=== PATIENT | male | born 1985 | race Caucasian/White ===

== ENCOUNTER 2021-07-10 14:55 | Outpatient (REF) | payer MEDICARE, MEDICAID, SELFPAY ==
[2021-07-10 15:40] LABS: Basophils Percent Auto 0.6 % (0-2); Eosinophils Absolute Auto 0.2 X10*3/uL (0.0-0.4); Eosinophils Percent Auto 2.3 % (0-4); Hemoglobin 14.6 g/dl (14.0-18.0); Imm Gran Abs Auto 0.03 X10*3/uL (0.00-0.03); Imm Gran Pct Auto 0.5 % (0.0-0.4); Lymphocytes Absolute Auto 1.9 X10*3/uL (1.2-4.9); Lymphocytes Percent Auto 28.9 % (20-40); Mean Corpuscular Hemoglobin 30.4 pg (27.0-33.0); Mean Corpuscular Volume 89.6 fL (80.0-98.0); Mean Platelet Volume 10.7 fL (9.4-12.4); Monocytes Absolute Auto 0.6 X10*3/uL (0.1-1.2); Monocytes Percent Auto 8.7 % (2-11); Platelet Count 198 X10*3/uL (160-400); White Blood Count 6.4 X10*3/uL (4.8-10.8)
[2021-07-10 15:41] LABS: MANUAL DIFF FLAG NO; Prothrombin Time 11.7 SEC (9.9-13.0)
[2021-07-10 15:44] LABS: Partial Thromboplastin Time 36.5 SEC (24.1-38.0)
[2021-07-10 16:08] LABS: Alanine Aminotransferase 31 U/L (0-40); Albumin Level 4.4 g/dL (3.5-5.0); Alkaline Phosphatase 79 U/L (39-117); Anion Gap 10 (12-20); Aspartate Amino Transferase 25 U/L (5-37); Bilirubin Total 0.3 mg/dL (0.0-1.0); Blood Urea Nitrogen 11 mg/dL (9-16); Calcium 9.3 mg/dL (8.4-10.2); Carbon Dioxide 31 mmol/L (22-29); Chloride 102 mmol/L (96-108); Estimated Glomerular Filt Rate > 60; Glucose Random 94 mg/dL (60-115); Potassium 4.4 mmol/L (3.3-5.1); Sodium 139 mmol/L (135-145); Total Protein 7.2 g/dL (6.5-8.0)
[2021-07-10 16:29] LABS: TSH reflex Free T4 1.24 uIU/mL (0.32-4.0); Vitamin D 25-OH Total 15.4 ng/mL (>30)
== END 2021-07-10 14:56 | disposition home or self-care (01) ==
LOC: HO.LAB 14:55
PROVIDERS: PCP Internal Medicine; Visit Provider Internal Medicine
DX: Z00.00 Encounter for general adult medical examination without abnormal findings (principal); E78.2 Mixed hyperlipidemia; I10 Essential (primary) hypertension; K05.30 Chronic periodontitis, unspecified; K01.1 Impacted teeth; E55.9 Vitamin D deficiency, unspecified; M85.80 Other specified disorders of bone density and structure, unspecified site
CPT/HCPCS: 36415; 80053; 82306; 84443; 85025; 85610; 85730

== ENCOUNTER 2021-07-12 10:27 | Outpatient (REF) | payer MEDICARE, MEDICAID, SELFPAY ==
[2021-07-12 11:41] LABS: Appearance Urine CLEAR; Color Urine YELLOW; Glucose Urine UA NEG (NEG); Leukocyte Esterase Urine NEG (NEG); Nitrite Urine NEG (NEG); PH 6.5 (5.0-8.0); Urine Blood NEG (NEG); Urine Ketones NEG (NEG); Urine Protein NEG (NEG-TRACE)
== END 2021-07-12 10:28 | disposition home or self-care (01) ==
LOC: HO.HMGCLNP 10:27
PROVIDERS: Visit Provider Internal Medicine
DX: R35.0 Frequency of micturition (principal)
CPT/HCPCS: 81003

== ENCOUNTER 2021-12-04 15:05 | Outpatient (REF) | payer MEDICARE, MEDICAID, SELFPAY ==
[2021-12-04 16:51] LABS: Eosinophils Absolute Auto 0.1 X10*3/uL (0.0-0.4); Eosinophils Percent Auto 1.2 % (0-4); Hemoglobin 14.7 g/dl (14.0-18.0); Imm Gran Abs Auto 0.04 X10*3/uL (0.00-0.03); Imm Gran Pct Auto 0.5 % (0.0-0.4); MANUAL DIFF FLAG SCAN; Monocytes Percent Auto 7.9 % (2-11); PLT CLUMP 1; SCAN SMEAR FLAG 1
[2021-12-04 16:54] LABS: Basophils Percent Auto 0.4 % (0-2); Hematocrit 44.1 % (42.0-52.0); Lymphocytes Absolute Auto 1.4 X10*3/uL (1.2-4.9); Lymphocytes Percent Auto 17.8 % (20-40); Mean Corpuscular HGB Conc 33.3 g/dl (31.0-36.0); Mean Corpuscular Hemoglobin 30.1 pg (27.0-33.0); Mean Corpuscular Volume 90.4 fL (80.0-98.0); Monocytes Absolute Auto 0.6 X10*3/uL (0.1-1.2); Neutrophils Absolute Auto 5.6 x10*3/uL (2.0-8.3); Neutrophils Percent Auto 72.2 % (45-73); Red Blood Count 4.88 X10*6/uL (4.60-5.80); Red Cell Distribution Width 12.9 % (11.0-16.0)
[2021-12-04 17:27] LABS: SLIDE REVIEW VERIFIED; White Blood Count 7.7 X10*3/uL (4.8-10.8)
[2021-12-04 17:28] LABS: Alanine Aminotransferase 44 U/L (0-40); Albumin Level 4.4 g/dL (3.5-5.0); Alkaline Phosphatase 89 U/L (39-117); Anion Gap 14 (12-20); Aspartate Amino Transferase 24 U/L (5-37); Bilirubin Total 0.2 mg/dL (0.0-1.0); Blood Urea Nitrogen 13 mg/dL (9-16); Calcium 9.5 mg/dL (8.4-10.2); Carbon Dioxide 27 mmol/L (22-29); Chloride 102 mmol/L (96-108); Estimated Glomerular Filt Rate > 60; Glucose Random 99 mg/dL (60-115); Potassium 4.2 mmol/L (3.3-5.1); Sodium 139 mmol/L (135-145); Total Protein 7.4 g/dL (6.5-8.0)
[2021-12-09 17:11] LABS: Levetiracetam Keppra 8.8 mcg/mL (12.0-46.0)
== END 2021-12-04 15:06 | disposition home or self-care (01) ==
LOC: HO.HMGCLDS 15:05
PROVIDERS: PCP Internal Medicine; Visit Provider Internal Medicine
DX: Z01.818 Encounter for other preprocedural examination (principal); G40.909 Epilepsy, unspecified, not intractable, without status epilepticus; Z79.899 Other long term (current) drug therapy
CPT/HCPCS: 36415; 80053; 80177; 85025

== ENCOUNTER 2022-01-07 10:11 | Emergency (ER) | payer MEDICARE, MEDICAID, SELFPAY ==
--- NOTE | ~2022-01-07 | CT_ITS ---
EXAMINATION: CT HEAD WITHOUT CONTRAST CLINICAL INFORMATION: Fall COMPARISON: Previous brain MRI May 2009 TECHNIQUE: Contiguous axial imaging was performed from the skull base to vertex without intravenous administration of contrast. This CT examination was performed using dose optimization techniques as appropriate, variously including the following: *Automated exposure control *Adjustment of mA and/or kV according to patient size (this includes techniques or standardized protocols for targeted exams where dose is matched to indication/reason for exam; i.e. extremities or head) *Use of iterative reconstruction technique DLP: 905 mGy-cm FINDINGS: There is no evidence of an extra-axial collection. There is no evidence of intra-axial or extra-axial hemorrhage. There is evidence of old trauma to the left frontal bone and left superior orbital rim and left frontal sinus. There is encephalomalacia and gliosis of the left frontal lobe and medial left posterior parietal lobe similar to previous MRI. The ventricles and extra-axial CSF spaces are prominent, particularly the posterior horn of the left lateral ventricle. This is similar to previous MRI as well. There is nonspecific periventricular white matter disease that appears unchanged. No mass or mass effect is seen. No acute skull fracture is seen. There is a plate in the left frontal bone/frontal sinus and the superior left orbital rim. There is a small polyp or cyst in the sphenoid sinus. CT/CT head/brain wo con IMPRESSION: No acute findings. Old trauma to the left frontal bone, frontal sinus and superior left orbital rim, encephalomalacia and gliosis of the left frontal lobe and left parietal lobe and prominence of the ventricles and extra-axial CSF spaces, particularly in the posterior horn of the left lateral ventricle, compared to May 2009 MRI.
--- NOTE | ~2022-01-07 | CT_ITS ---
EXAMINATION: CT CERVICAL SPINE WITHOUT CONTRAST CLINICAL INFORMATION: Fall COMPARISON: None TECHNIQUE: Axial images through the cervical spine without contrast. Sagittal and coronal reconstructions on the technologist workstation were performed. This CT examination was performed using dose optimization techniques as appropriate, variously including the following: *Automated exposure control *Adjustment of mA and/or kV according to patient size (this includes techniques or standardized protocols for targeted exams where dose is matched to indication/reason for exam; i.e. extremities or head) *Use of iterative reconstruction technique DLP: 535 mGy-cm FINDINGS: There is curvature of the lower cervical and proximal thoracic spine to the right. Bone alignment is otherwise normal. No fracture or dislocation is seen. There is mild degenerative spondylosis at C4-C5, C5-C6 and C6-C7. Disc spaces are normal. Prevertebral soft tissues are normal. The visualized lung apices are clear. There may be an old left clavicle fracture. CT/CT cervical spine wo con IMPRESSION: Curvature of the lower cervical and upper thoracic spine to the left. Mild degenerative changes. No fracture or dislocation. Question old left clavicle fracture. Fleischner guidelines were followed.
--- NOTE | ~2022-01-07 | XR_ITS ---
EXAMINATION: XR thoracic spine 3V, XR lumbar spine 2-3V CLINICAL INFORMATION: Reason for Exam fall, pain COMPARISON: None. TECHNIQUE: AP, lateral and swimmer's views of the thoracic spine AP, lateral and coned-down views lumbosacral spine FINDINGS: No acute fracture or traumatic malalignment. Vertebral body heights maintained. Minimal S-shaped thoracolumbar scoliosis, apex left at T9, apex right at L3. Small endplate osteophytes present throughout the thoracic and lumbar spine. Bulky hypertrophic facet arthropathy present throughout the lumbar spine. Paraspinal soft tissues unremarkable. XR/XR lumbar spine 2-3V IMPRESSION: No acute fracture or traumatic malalignment. Thoracolumbar spondylosis as described.
--- NOTE | ~2022-01-07 | XR_ITS ---
EXAMINATION: XR thoracic spine 3V, XR lumbar spine 2-3V CLINICAL INFORMATION: Reason for Exam fall, pain COMPARISON: None. TECHNIQUE: AP, lateral and swimmer's views of the thoracic spine AP, lateral and coned-down views lumbosacral spine FINDINGS: No acute fracture or traumatic malalignment. Vertebral body heights maintained. Minimal S-shaped thoracolumbar scoliosis, apex left at T9, apex right at L3. Small endplate osteophytes present throughout the thoracic and lumbar spine. Bulky hypertrophic facet arthropathy present throughout the lumbar spine. Paraspinal soft tissues unremarkable. XR/XR thoracic spine 3V IMPRESSION: No acute fracture or traumatic malalignment. Thoracolumbar spondylosis as described.
[2022-01-07 10:22] VITALS: BP 119/71; BP 130/90; PULSE 71; PULSE 91; RESP 20; TEMP 37.2; O2SAT 96; O2SAT 98; BMI 31.5
--- NOTE | 2022-01-07 11:13 | ED_ITS ---
HPI - Fall General Chief Complaint: Fall Stated Complaint: FALL OUT OF W/C VAN, BACK PAIN Time Seen by Provider: 01/07/22 10:41 Source: family and EMS Mode of arrival: ambulatory Limitations: altered mental status History of Present Illness HPI Narrative: Patient presents to the emergency department via EMS. Reportedly patient was being transported via wheelchair van to his adult daycare. Upon getting out of the wheelchair van his chair tipped backwards reportedly landing with the back of the chair and the headrest against the ground. Patient initially had reported some back pain. There was no loss of consciousness reported. On my exam the patient has no complaints, however his mother is at bedside and states that he has no reliable short-term memory. He is alert, verbal with mumbled speech but this is reportedly baseline per the mother. Related Data Previous Rx's Medication Instructions Recorded bisacodyl 10 mg rectal suppository 10 mg TX .COMPLEX PRN 90 Days #50 11/05/20 ea ketoconazole 2 % shampoo 1 appl TOPICAL Q OTHER DAY PRN 30 11/05/20 Days #120 ml fluoxetine 20 mg capsule 20 mg PO DAILY #90 cap 12/02/21 AFO - left #1 ea 12/03/21 AFO - right #1 ea 12/03/21 lorazepam 0.5 mg tablet 0.5 mg PO BID PRN 15 Days #30 tab 12/03/21 levetiracetam 100 mg/mL oral 500 mg (5 mL) PO Q12H #900 ml 12/04/21 solution quetiapine 25 mg tablet 25 mg PO BID #180 tab 12/26/21 Allergies Allergy/AdvReac Type Severity Reaction Status Date / Time amoxicillin [AMOXICILLIN] Allergy Unknown NAUSEA & Verified 12/04/21 02:05 VOMITING Sulfa (Sulfonamide Allergy Unknown Unknown Verified 12/04/21 02:05 Antibiotics) sulfamethoxazole Allergy Unknown UNKNOWN Verified 12/04/21 02:05 [From BACTRIM] trimethoprim [From BACTRIM] Allergy Unknown UNKNOWN Verified 12/04/21 02:05 vancomycin [VANCOMYCIN] Allergy Unknown RASH Verified 12/04/21 02:05 Review of Systems Review of Systems: Yes Unobtainable due to mental status PMFSH Past Medical History Source: old records reviewed, obtained from family and nursing notes reviewed Medical History Anxiety Constipation Contracture, left foot Depression Mixed hyperlipidemia Pharyngeal dysphagia Seborrhea capitis Spastic paraplegia TBI (traumatic brain injury) Urinary frequency Surgical History History of surgery Family History Family History Father Stroke Mother Hypertension Brother In good health Sister In good health Social History Social History Housing: House Alcohol intake: never Patient Tobacco Use Status: Never used Tobacco Second Hand Smoke Exposure: Yes Use of substances other than those prescribed or required for medical reasons: No Advance Directives: No Advance Directives Information Provided: Yes service: No Current occupational status: disabled Cognitive needs: Yes Hearing needs: No Vision needs: No Physical Exam Vital Signs: Vital Signs: Last Vital Signs Temp 98.9 F 01/07/22 10:22 Pulse 49 L 01/07/22 12:05 Resp 16 01/07/22 12:05 BP 131/50 L 01/07/22 12:05 Pulse Ox 96 01/07/22 11:41 BMI result Body Mass Index 31.5 Vital signs have been reviewed as normal and appeared to be correct. Blood pressure normal.? Heart rate normal.? Respiration rate normal. Temperature normal.? Oxygen saturation normal. Appearance: Alert.??Normal affect. Eyes: Pupils equal, round and reactive to light.? ENT: Pharynx normal.?? Neck: Normal inspection.? Neck supple.? No palpable midline C-spine step-offs, deformities, no wincing or reports of pain or tenderness Back: No palpable midline T-spine or L-Spine step-offs, deformities, no wincing or reports of pain or tenderness CVS: Heart sounds normal. Normal heart rate and rhythm.? Pulses normal.?? Respiratory: No respiratory distress.? Lung sounds clear to auscultation bilaterally?? Abdomen: Soft and non-tender. Skin: Skin warm and dry.? Normal skin color.? Extremities: No lower extremity edema.? Neuro: Moves all extremities spontaneously. Sensation intact bilaterally. CN II- XII intact. No focal neuro deficits. Course Course Course Narrative: Patient is a 36-year-old male with a past medical history of traumatic brain injury, wheelchair bound, spastic paraplegia, hyperlipidemia, depression, anxiety presenting to the emergency department for evaluation after falling off of a chair band left while in his wheelchair. No reports of LOC, there is mention of initial reports of back pain though he is denying these at the time of the exam. Given his baseline mental status will obtain CT of the head and cervical spine in addition to x-rays of the thoracic and lumbar spine to exclude ICH/SAH/spinal fractures or subluxations. There are no focal neurological deficits on examination. Per his mother at bedside he is mentating at his baseline. Able to follow commands. Reevaluation(s) Reevaluation #1: X-ray of the thoracic and lumbar spine without acute fracture traumatic malalignment. Thoracolumbar spondylosis, scoliosis. CT of the head and cervical spine reveal no acute findings. I discussed these findings with patient's mother, and he continues to report no complaints said she has been at bedside. When asked he denies any pain currently. At this time feel that patient is stable for discharge home. Advised outpatient follow-up with primary care provider within 1 week. Advised reasons to return back to the emergency department. All questions were answered. Time: 13:37 MDM - Fall Medical Records Attestation: I reviewed the patient's medical records. Imaging Data XR spine: Radiologist's impression: XR/XR lumbar spine 2-3V IMPRESSION: No acute fracture or traumatic malalignment. Thoracolumbar spondylosis as described.? XR/XR thoracic spine 3V IMPRESSION: No acute fracture or traumatic malalignment. Thoracolumbar spondylosis as described.? CT scan - head: Radiologist's impression: CT/CT head/brain wo con IMPRESSION: No acute findings. Old trauma to the left frontal bone, frontal sinus and superior left orbital rim, encephalomalacia and gliosis of the left frontal lobe and left parietal lobe and prominence of the ventricles and extra-axial CSF spaces, particularly in the posterior horn of the left lateral ventricle, compared to May [address]/CT cervical spine wo con IMPRESSION: Curvature of the lower cervical and upper thoracic spine to the left. Mild degenerative changes. No fracture or dislocation. Question old left clavicle fracture. Discharge Plan Discharge Clinical Impression: Fall Patient Disposition: Home, Self-Care Additional Instructions: A CT scan of the head and neck were obtained both of which were normal. We obtained x-rays of his back which were normal. Please contact the primary care provider to schedule follow-up visit within 1 week. You may return to the emergency department with any new or worsening symptoms or concerns. Prescriptions: No Action fluoxetine 20 mg capsule 20 mg PO DAILY Qty: 90 1RF quetiapine 25 mg tablet 25 mg PO BID Qty: 180 1RF ketoconazole 2 % shampoo 1 appl topical Q OTHER DAY PRN (Reason: scalp rash) 30 Days Qty: 120 5RF bisacodyl 10 mg suppository 10 mg TX .COMPLEX PRN (Reason: constipation) 90 Days Qty: 50 3RF Rx Instructions: 10 mg TX every other day PRN; lorazepam 0.5 mg tablet 0.5 mg PO BID PRN (Reason: anxiety) 15 Days Qty: 30 0RF (DME) AFO - right See Rx Instructions .Route .MEDSUPPLY Qty: 1 0RF Rx Instructions: As directed (DME) AFO - left See Rx Instructions .Route .MEDSUPPLY Qty: 1 0RF Rx Instructions: As directed levetiracetam 100 mg/mL solution 500 mg PO Q12H Qty: 900 1RF Interventions: ED Discharge Assessment Last Done: 01/07/22 18:25 Discharge Date/Time: 01/07/22 18:25
[2022-01-07 11:41] VITALS: BP 108/60; PULSE 63; RESP 18; O2SAT 96
--- NOTE | 2022-01-07 11:44 | PC.NURSE ---
pt alert and oriented to person/place. difficulty w short term per mom. pt fell back in wheelchair this am backing off a chair van lift. no complaints. pt doesn't remember details of fall, but this is baseline for pt per mother. vss, XR and CT results pending.
[2022-01-07 12:05] VITALS: BP 131/50; PULSE 49; RESP 16
== END 2022-01-07 18:25 | disposition home or self-care (01) ==
PROVIDERS: Emergency Provider Emergency Medicine; PCP Internal Medicine
DX: S39.92XA Unspecified injury of lower back, initial encounter (principal); M54.6 Pain in thoracic spine; M54.2 Cervicalgia; R51.9 Headache, unspecified; V79.50XA Passenger on bus injured in collision with unspecified motor vehicles in traffic accident, initial encounter; Y93.9 Activity, unspecified; Y92.9 Unspecified place or not applicable; Y99.9 Unspecified external cause status; Z79.899 Other long term (current) drug therapy
CPT/HCPCS: 70450; 72072; 72100; 72125; 99284

== ENCOUNTER 2023-02-25 10:58 | Outpatient (REF) | payer MEDICARE, MEDICAID, SELFPAY ==
--- NOTE | ~2023-02-25 | XR_ITS ---
EXAMINATION: XR HAND, LEFT CLINICAL INFORMATION: Pain COMPARISON: None available. TECHNIQUE: AP and lateral views of the left hand. FINDINGS: There is orthopedic hardware seen in the distal shafts of the radius and ulna with plates and screws. There is a plate and screws from the base of the second metacarpal bone to the distal shaft of the radius. On the lateral view there is a lucency adjacent to the most distal screw in the shaft of the second metacarpal bone suggestive of loosening. There is flexion of the fingers. There is arthritis at the wrist. Old trauma to the distal radial shaft. There is bridging ossification of the distal shafts of the radius and ulna. No acute fracture or dislocation. Soft tissues are normal. XR/XR hand LT min 3V IMPRESSION: Extensive orthopedic hardware in the distal forearm. Plate and screws from the base of the second metacarpal bones of the distal radius. There is lucency of the most distal screw in the mid shaft of the second metacarpal bone. 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
== END 2023-02-25 10:59 | disposition home or self-care (01) ==
LOC: HO.HOSX 10:58
PROVIDERS: PCP Internal Medicine; Visit Provider Orthopaedic Surgery
DX: M79.642 Pain in left hand (principal); M24.542 Contracture, left hand; M24.541 Contracture, right hand; S06.9X9S Unspecified intracranial injury with loss of consciousness of unspecified duration, sequela; V89.2XXD Person injured in unspecified motor-vehicle accident, traffic, subsequent encounter
CPT/HCPCS: 73130; 99202

== ENCOUNTER 2023-05-05 14:43 | Outpatient (REF) | payer MEDICARE, MEDICAID, SELFPAY ==
[2023-05-05 16:32] LABS: Sodium 138 mmol/L (135-145)
== END 2023-05-05 14:44 | disposition home or self-care (01) ==
LOC: HO.HMGCLDS 14:43
PROVIDERS: PCP Internal Medicine; Visit Provider Psychiatry & Neurology Neurology
DX: R56.1 Post traumatic seizures (principal); S06.9X9A Unspecified intracranial injury with loss of consciousness of unspecified duration, initial encounter; R45.1 Restlessness and agitation; R46.89 Other symptoms and signs involving appearance and behavior
CPT/HCPCS: 36415; 84295

== ENCOUNTER 2023-05-22 12:25 | Outpatient (AMB) | payer MEDICARE, MEDICAID, SELFPAY ==
[2023-05-22 12:32] VITALS: BP 122/78; PULSE 87; O2SAT 98
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
== END 2023-05-22 13:03 | disposition home or self-care (01) ==
PROVIDERS: PCP Internal Medicine; Visit Provider Internal Medicine
DX: Z00.00 Encounter for general adult medical examination without abnormal findings (principal); F41.9 Anxiety disorder, unspecified; S06.9X9S Unspecified intracranial injury with loss of consciousness of unspecified duration, sequela; F33.1 Major depressive disorder, recurrent, moderate; J30.9 Allergic rhinitis, unspecified; G47.00 Insomnia, unspecified
CPT/HCPCS: 99396

== ENCOUNTER 2023-05-27 08:57 | Outpatient (REF) | payer MEDICARE, MEDICAID, SELFPAY ==
[2023-05-27 11:31] LABS: MANUAL DIFF FLAG NO
[2023-05-27 11:57] LABS: Basophils Percent Auto 0.5 % (0-2); Eosinophils Absolute Auto 0.1 X10*3/uL (0.0-0.4); Eosinophils Percent Auto 2.2 % (0-4); Hematocrit 44.8 % (42.0-52.0); Hemoglobin 15.7 g/dl (14.0-18.0); Imm Gran Abs Auto 0.02 X10*3/uL (0.00-0.03); Imm Gran Pct Auto 0.3 % (0.0-0.4); Lymphocytes Absolute Auto 1.7 X10*3/uL (1.2-4.9); Lymphocytes Percent Auto 27.7 % (20-40); Mean Corpuscular Hemoglobin 30.1 pg (27.0-33.0); Mean Platelet Volume 10.9 fL (9.4-12.4); Monocytes Absolute Auto 0.4 X10*3/uL (0.1-1.2); Neutrophils Absolute Auto 3.7 x10*3/uL (2.0-8.3); Neutrophils Percent Auto 62.3 % (45-73); Platelet Count 223 X10*3/uL (160-400); Red Blood Count 5.21 X10*6/uL (4.60-5.80)
[2023-05-27 11:59] LABS: Appearance Urine Clear; Color Urine Yellow; Glucose Urine UA Negative (Negative); Leukocyte Esterase Urine Negative (Negative); Nitrite Urine Negative (Negative); PH 7.5 (5.0-9.0); Urine Blood Negative (Negative); Urine Ketones Negative (Negative); Urine Protein Negative (Neg-Trace)
[2023-05-27 12:06] LABS: Sodium 141 mmol/L (135-145)
[2023-05-27 12:41] LABS: Alanine Aminotransferase 37 U/L (0-40); Albumin Level 4.4 g/dL (3.5-5.0); Alkaline Phosphatase 68 U/L (39-117); Anion Gap 13 (12-20); Aspartate Amino Transferase 26 U/L (5-37); Bilirubin Total 0.3 mg/dL (0.0-1.0); Blood Urea Nitrogen 9 mg/dL (9-16); Calcium 9.6 mg/dL (8.4-10.2); Carbon Dioxide 25 mmol/L (22-29); Chloride 108 mmol/L (96-108); Cholesterol 206 mg/dL (<200); Estimated Glomerular Filt Rate > 60; Glucose Fasting 93 mg/dL (60-99); HDL Cholesterol 36 mg/dL (>40); LDL Cholesterol Calculated 132 mg/dL (<100); Sodium 142 mmol/L (135-145); TSH reflex Free T4 1.47 uIU/mL (0.32-4.0); Total Protein 7.6 g/dL (6.5-8.0); Triglycerides 191 mg/dL (<150)
[2023-05-30 11:18] LABS: Levetiracetam Keppra 5.9 mcg/mL (6.0-46.0)
== END 2023-05-27 08:58 | disposition home or self-care (01) ==
LOC: HO.HMGCLDS 08:57
PROVIDERS: Absent Provider Psychiatry & Neurology Neurology; PCP Internal Medicine; Visit Provider Internal Medicine
DX: Z00.00 Encounter for general adult medical examination without abnormal findings (principal); R30.0 Dysuria; S06.9X9A Unspecified intracranial injury with loss of consciousness of unspecified duration, initial encounter; E78.00 Pure hypercholesterolemia, unspecified; E55.9 Vitamin D deficiency, unspecified; G40.909 Epilepsy, unspecified, not intractable, without status epilepticus; R45.1 Restlessness and agitation; R46.89 Other symptoms and signs involving appearance and behavior; Z79.899 Other long term (current) drug therapy
CPT/HCPCS: 36415; 80053; 80061; 80177; 81003; 82306; 84295; 84443; 85025

== ENCOUNTER 2023-08-12 14:22 | Outpatient (REF) | payer MEDICARE, MEDICAID, SELFPAY ==
[2023-08-12 16:23] LABS: Sodium 138 mmol/L (135-145)
== END 2023-08-12 14:23 | disposition home or self-care (01) ==
LOC: HO.HMGCLDS 14:22
PROVIDERS: Visit Provider Psychiatry & Neurology Neurology
DX: S06.9X9A Unspecified intracranial injury with loss of consciousness of unspecified duration, initial encounter (principal); R56.1 Post traumatic seizures; R45.1 Restlessness and agitation; G81.90 Hemiplegia, unspecified affecting unspecified side; R46.89 Other symptoms and signs involving appearance and behavior; F39 Unspecified mood [affective] disorder; G47.9 Sleep disorder, unspecified; X58.XXXA Exposure to other specified factors, initial encounter; Y93.9 Activity, unspecified; Y92.9 Unspecified place or not applicable; Y99.9 Unspecified external cause status
CPT/HCPCS: 36415; 84295

== ENCOUNTER 2023-11-03 15:16 | Outpatient (REF) | payer MEDICARE, MEDICAID, SELFPAY ==
[2023-11-03 16:02] LABS: Alanine Aminotransferase 26 U/L (0-40); Albumin Level 4.2 g/dL (3.5-5.0); Alkaline Phosphatase 86 U/L (39-117); Anion Gap 13 (12-20); Aspartate Amino Transferase 22 U/L (5-37); Bilirubin Total 0.3 mg/dL (0.0-1.0); Blood Urea Nitrogen 11 mg/dL (9-16); Calcium 9.2 mg/dL (8.4-10.2); Carbon Dioxide 26 mmol/L (22-29); Chloride 103 mmol/L (96-108); Estimated Glomerular Filt Rate > 60; Glucose Random 103 mg/dL (60-115); Potassium 4.2 mmol/L (3.3-5.1); Sodium 138 mmol/L (135-145); Total Protein 7.4 g/dL (6.5-8.0)
[2023-11-06 16:49] LABS: Levetiracetam Keppra 8.7 mcg/mL (6.0-46.0)
== END 2023-11-03 15:17 | disposition home or self-care (01) ==
LOC: HO.LAB 15:16
PROVIDERS: PCP Internal Medicine; Visit Provider Psychiatry & Neurology Neurology
DX: S06.9X9A Unspecified intracranial injury with loss of consciousness of unspecified duration, initial encounter (principal); R56.1 Post traumatic seizures; R45.1 Restlessness and agitation; R46.89 Other symptoms and signs involving appearance and behavior; G81.90 Hemiplegia, unspecified affecting unspecified side; X58.XXXA Exposure to other specified factors, initial encounter; Y93.9 Activity, unspecified; Y92.9 Unspecified place or not applicable; Y99.9 Unspecified external cause status
CPT/HCPCS: 36415; 80053; 80177

== ENCOUNTER 2023-11-07 07:49 | Outpatient (REF) | payer MEDICARE, MEDICAID, SELFPAY ==
[2023-11-12 01:48] LABS: Oxcarbazepine 7.9 mcg/mL (8.0-35.0)
== END 2023-11-07 07:50 | disposition home or self-care (01) ==
LOC: HO.LAB 07:49
PROVIDERS: PCP Internal Medicine; Visit Provider Psychiatry & Neurology Neurology
DX: S06.9X9A Unspecified intracranial injury with loss of consciousness of unspecified duration, initial encounter (principal); R56.1 Post traumatic seizures; R45.1 Restlessness and agitation; R46.89 Other symptoms and signs involving appearance and behavior; G81.90 Hemiplegia, unspecified affecting unspecified side; X58.XXXA Exposure to other specified factors, initial encounter; Y93.9 Activity, unspecified; Y92.9 Unspecified place or not applicable; Y99.9 Unspecified external cause status
CPT/HCPCS: 36415; 80339

== ENCOUNTER 2023-11-20 12:29 | Outpatient (AMB) | payer MEDICARE, MEDICAID, SELFPAY ==
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
[2023-11-20 12:41] VITALS: BP 132/76; PULSE 108; O2SAT 96
== END 2023-11-20 13:17 | disposition home or self-care (01) ==
PROVIDERS: PCP Internal Medicine; Visit Provider Internal Medicine
DX: G47.00 Insomnia, unspecified (principal); S06.9X9S Unspecified intracranial injury with loss of consciousness of unspecified duration, sequela; F33.1 Major depressive disorder, recurrent, moderate; E78.2 Mixed hyperlipidemia; F41.9 Anxiety disorder, unspecified
CPT/HCPCS: 99214

== ENCOUNTER 2024-05-25 12:46 | Outpatient (AMB) | payer MEDICARE, MEDICAID, SELFPAY ==
[2024-05-25 12:50] VITALS: BP 110/70; PULSE 66; O2SAT 97
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
== END 2024-05-25 13:32 | disposition home or self-care (01) ==
PROVIDERS: PCP Internal Medicine; Visit Provider Internal Medicine
DX: Z00.00 Encounter for general adult medical examination without abnormal findings (principal); S06.9X9S Unspecified intracranial injury with loss of consciousness of unspecified duration, sequela; F33.1 Major depressive disorder, recurrent, moderate; E78.2 Mixed hyperlipidemia; J30.9 Allergic rhinitis, unspecified; G47.00 Insomnia, unspecified; F41.9 Anxiety disorder, unspecified

== ENCOUNTER → 2024-05-25 12:46 | Outpatient (BNVA) | payer MEDICARE, MEDICAID, SELFPAY | PROVIDERS: PCP Internal Medicine; Visit Provider Internal Medicine | DX: Z00.00 Encounter for general adult medical examination without abnormal findings (principal); S06.9X9S Unspecified intracranial injury with loss of consciousness of unspecified duration, sequela; E78.2 Mixed hyperlipidemia; J30.9 Allergic rhinitis, unspecified; G47.00 Insomnia, unspecified; F41.9 Anxiety disorder, unspecified; F33.1 Major depressive disorder, recurrent, moderate | CPT/HCPCS: 99396 ==

== ENCOUNTER 2024-07-16 09:33 | Outpatient (REF) | payer MEDICARE, MEDICAID, SELFPAY ==
[2024-07-16 09:48] LABS: MANUAL DIFF FLAG NO
[2024-07-16 10:41] LABS: Basophils Percent Auto 0.8 % (0-2); Eosinophils Absolute Auto 0.1 X10*3/uL (0.0-0.4); Eosinophils Percent Auto 1.5 % (0-4); Hematocrit 43.7 % (42.0-52.0); Hemoglobin 15.4 g/dl (14.0-18.0); Imm Gran Abs Auto 0.02 X10*3/uL (0.00-0.03); Imm Gran Pct Auto 0.4 % (0.0-0.4); Lymphocytes Absolute Auto 1.4 X10*3/uL (1.2-4.9); Lymphocytes Percent Auto 26.3 % (20-40); Mean Corpuscular HGB Conc 35.2 g/dl (31.0-36.0); Mean Corpuscular Hemoglobin 29.8 pg (27.0-33.0); Mean Corpuscular Volume 84.7 fL (80.0-98.0); Monocytes Absolute Auto 0.4 X10*3/uL (0.1-1.2); Monocytes Percent Auto 7.5 % (2-11); Neutrophils Absolute Auto 3.3 x10*3/uL (2.0-8.3); Neutrophils Percent Auto 63.5 % (45-73); Platelet Count 207 X10*3/uL (160-400); Red Blood Count 5.16 X10*6/uL (4.60-5.80); Red Cell Distribution Width 12.7 % (11.0-16.0); White Blood Count 5.2 X10*3/uL (4.8-10.8)
[2024-07-16 11:26] LABS: Alanine Aminotransferase 29 U/L (0-40); Albumin Level 4.3 g/dL (3.5-5.0); Alkaline Phosphatase 82 U/L (39-117); Anion Gap 16 (12-20); Aspartate Amino Transferase 30 U/L (5-37); Bilirubin Total 0.3 mg/dL (0.0-1.0); Blood Urea Nitrogen 9 mg/dL (9-16); Calcium 9.6 mg/dL (8.4-10.2); Carbon Dioxide 26 mmol/L (22-29); Chloride 106 mmol/L (96-108); Cholesterol 208 mg/dL (<200); Estimated Glomerular Filt Rate > 60; Glucose Fasting 94 mg/dL (60-99); HDL Cholesterol 43 mg/dL (>40); LDL Cholesterol Calculated 132 mg/dL (<100); Potassium 3.7 mmol/L (3.3-5.1); Sodium 144 mmol/L (135-145); Total Protein 7.4 g/dL (6.5-8.0); Triglycerides 167 mg/dL (<150)
[2024-07-16 11:30] LABS: TSH reflex Free T4 2.19 uIU/mL (0.32-4.0); Vitamin D 25-OH Total 15.7 ng/mL (>30)
== END 2024-07-16 09:34 | disposition home or self-care (01) ==
LOC: HO.LAB 09:33
PROVIDERS: PCP Internal Medicine; Visit Provider Internal Medicine
DX: Z00.00 Encounter for general adult medical examination without abnormal findings (principal); E78.00 Pure hypercholesterolemia, unspecified; D64.9 Anemia, unspecified; E55.9 Vitamin D deficiency, unspecified
CPT/HCPCS: 36415; 80053; 80061; 82306; 84443; 85025

== ENCOUNTER 2024-11-18 10:28 | Outpatient (REF) | payer MEDICARE, MEDICAID, SELFPAY ==
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
[2024-11-18 12:22] LABS: Alanine Aminotransferase 58 U/L (0-40); Albumin Level 4.1 g/dL (3.5-5.0); Alkaline Phosphatase 87 U/L (39-117); Anion Gap 13 (12-20); Aspartate Amino Transferase 27 U/L (5-37); Bilirubin Total 0.2 mg/dL (0.0-1.0); Blood Urea Nitrogen 12 mg/dL (9-16); Calcium 8.9 mg/dL (8.4-10.2); Carbon Dioxide 26 mmol/L (22-29); Chloride 105 mmol/L (96-108); Estimated Glomerular Filt Rate > 60; Glucose Random 100 mg/dL (60-115); Sodium 140 mmol/L (135-145); Total Protein 7.5 g/dL (6.5-8.0)
== END 2024-11-18 10:29 | disposition home or self-care (01) ==
LOC: HO.LAB 10:28
PROVIDERS: PCP Internal Medicine; Visit Provider Nurse Practitioner
DX: S06.9X9D Unspecified intracranial injury with loss of consciousness of unspecified duration, subsequent encounter (principal)
CPT/HCPCS: 36415; 80053

== ENCOUNTER 2024-11-22 12:53 | Outpatient (AMB) | payer MEDICARE, MEDICAID, SELFPAY ==
[2024-11-22 13:00] VITALS: BP 110/80; PULSE 85; O2SAT 97
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
== END 2024-11-22 13:43 | disposition home or self-care (01) ==
LOC: HO.HMCH 12:54
PROVIDERS: PCP Internal Medicine; Visit Provider Internal Medicine
DX: E78.2 Mixed hyperlipidemia (principal); S06.9X9S Unspecified intracranial injury with loss of consciousness of unspecified duration, sequela; F33.1 Major depressive disorder, recurrent, moderate; J30.9 Allergic rhinitis, unspecified; G47.00 Insomnia, unspecified; F41.9 Anxiety disorder, unspecified

== ENCOUNTER → 2024-11-22 12:53 | Outpatient (BNVA) | payer MEDICARE, MEDICAID, SELFPAY | PROVIDERS: PCP Internal Medicine; Visit Provider Internal Medicine | DX: S06.9X9S Unspecified intracranial injury with loss of consciousness of unspecified duration, sequela (principal); E78.2 Mixed hyperlipidemia; J30.9 Allergic rhinitis, unspecified; G47.00 Insomnia, unspecified; F41.9 Anxiety disorder, unspecified; F33.1 Major depressive disorder, recurrent, moderate | CPT/HCPCS: 96127; 99212 ==

== ENCOUNTER 2025-05-27 09:26 | Outpatient (REF) | payer MEDICARE, MEDICAID, SELFPAY ==
--- OUTSIDE RECORDS SUMMARY | 2024-03-21 09:30 | XMS_ITS ---
Author Organization [facility] [employer] [facility] Address [address] [place] [id number] Care Team Providers Care Gliding Pilot Instructor Name Role Phone Eliseo Dinh Primary Care Provider UnavailReyes Hernandez Unavailable [phone] Barbara Thrasher Unavailable [phone] REASON FOR VISIT je said cancel Encounters Encounter Location Date Provider Diagnosis [facility] [employer] [address] [address] 03/21/2024 Barbara Thrasher Plan Of Treatment Next Appt Details Provider Name:Barbara jimenez, 07/19/2025 03:00:00 PM, [address] [place] [address], [place] [address], [place], [address], Progress Notes * Matias WILLOUGHBY MDOB:[birth year] (40 yo M)Acc No.[id number]:03/21/2024 Patient: Matias SANCHEZ Provider: Hilario Thrasher RN, MINING AND QUARRYING MACHINERY REPAIRER-C, LEATHER GRAINER :1985 A ge:38 Y S ex:Male Date:03/21/2024 Address: [place] [facility] Pcp:Eliseo Dinh Subjective: * Chief Complaints: * 1 . Je said cancel. * Medical History: Objective: * Vitals: Assessment: Plan: * Treatment: * * Electronic signature of TOSHA JonesC, KOKO on 05/27/2025 at 09:30 AM EDT Sign off status: Pending * Provider: Hilario Thrasher RN, KAHLIL, KOKO Date: 0 03/21/2024 Generated for Printing/Faxing/eTransmitting on: 0 05/27/2025 09:30 AM EDT
--- OUTSIDE RECORDS SUMMARY | 2025-05-27 09:30 | XMS_ITS | Clinical Summary ---
Author Organization [facility] Address [address] [facility] [address] [place] [id number] Phone Care Team Providers Care Reservoir Engineering Manager Name Role Phone Unavailable Primary Care Provider Unavailabl e Allergies Active Allergy Reactions Criticality Noted Date Comments Sulfa (Sulfonamide Antibiotics) Rash 08/08 Vancomycin Hcl Other (See Comments) 08/27/2009 Rash Medications methotrexate 2.5 MG Oral tablet Take 9 tablets (22.5 mg total) by mouth every 7 days. Take 7.5mg three times daily one day per week 40 tablet 3 12/19/2015 Active Social History Tobacco Use Types Packs/Day Years Used Date Smoking Tobacco: Never Assessed Education Answer Date Recorded Are you interested in more education? Not on aidan e 01/18/2023 Are you concerned about learning? Not on file 01/18/2023 No 01/18/2023 No 01/18/2023 Digital Access Answer Date Recorded No 02/01/2023 No 02/01/2023 Reliable internet access at home? Not on file 02/01/2023 Device with a working camera? Not on file Sex and Gender Information Value Date Recorded Sex Assigned at Not on file Legal Sex Male 6:10 PM EST Gender Identity Not on file Sexual Orientation Not on file Last Filed Vital Signs Vital Sign Reading Time Taken Comments Blood Pressure - - Pulse - - Temperature - - Respiratory Rate - - Oxygen Saturation - - Inhaled Oxygen Concentration - - Weight 88.5 kg (195 lb) 09/02/2011 4:46 AM EST Height 180.3 cm (5' 11 ) 09/02/2011 4:46 AM EST Body Mass Index 27.2 09/02/2011 4:46 AM EST Plan of Treatment Health Maintenance Due Date Last Done Comments LIPID PANEL 1983 DEPRESSION SCREENING 1995 SMOKING Hx and SMOKELESS TOBACCO SCREENING 1996 HEPATITIS C SCREENING 2001 HIV ONE-TIME SCREENING (18-65 YEARS) 2001 PNEUMOCOCCAL VACCINES (0-49 years) (1 of 2 - PCV) 2002 COVID-19 VACCINE (3 - Moderna risk series) 01/02/2021 12/05/2020, 11/07/2020 INFLUENZA VACCINE (#1) 2025 0, 06/19/2018, 08/17/2017, Additional history exists Adult Td,Tdap Booster 08/17/2027 08/17/2017, 007 HEPATITIS A VACCINES Aged Out No long er eligible based on patient's age to complete this topic HIB VACCINES Aged Out No longer eligi ble based on patient's age to complete this topic MENINGOCOCCAL VACCINES (ACWY) Aged Out No longer eligible based on patient's age to complete this topic MENINGOCOCCAL VACCINES (B) Aged Out N o longer eligible based on patient's age to complete this topic Medical Devices Not on file Additional Source Comments The information contained in this document represents components of the legal health record. It is not the complete legal health record.[facility]
--- OUTSIDE RECORDS SUMMARY | 2025-05-27 09:30 | XMS_ITS | Patient Health Record ---
Author Organization [facility] Address [address] [address] Care Team Providers Care Electrical Automation Engineer Name Role Phone Eliseo Dinh Primary Care Provider UnavailReyes Hernandez Unavailable [phone] Barbara Thrasher Unavailable [phone] Allergies Allergen (clinical drug ingredient) Drug/Non Drug Allergy documented on EMR Reaction Allergy Type Onset Date Status sulfamethoxazole / trimethoprim Bactrim Unknown Drug Allergy Active amoxicillin Amoxicillin Unknown Drug Allergy Act lit vancomycin Vancomycin Unknown Drug Allergy Activ e Reason For Referral No Information Medications Medication SIG (Take, Route, Frequency, Duration) Notes Start Date End Date Status OXcarbazepine 150 MG TAKE 1 TABLET (150 MG) BY MOUTH EVERY MORNING AND TAKE 2 TABLETS (300 MG) BY MOUTH EVERY EVENING.; Duration: 90 Active Gabapentin 300 MG TAKE 1 CAPSULE BY H TWICE A DAY; Duration: 90 Active Mirtazapine 45 MG TAKE 1 TABLET BY EVERY DAY AT BEDTIME FOR 90 DAYS; Duration: 90 days Active Docusate Sodium 100 MG 1 capsule as need ed Orally twice a day; Duration: 30 days Active Ketoconazole 2 % External; Duration: 30 Active Fluticasone Propionate 50 MCG/ACT SPRAY 2 SPRAYS INTO EACH NOSTRIL ONCE A DAY. Nasal; Duration: 90 Active Vitamin D 50 MCG (1999) 2 capsule Ora lly Once a day Active Bisacodyl 10 MG 1 suppository as nee ded Rectal Once a day Active Gabapentin 300 MG TAKE 1 CAPSULE BY H EVERY DAY FOR 30 DAYS twice daily; Duration: 90 days Active Baclofen 500 MCG/ML as directed Intrathecal PUMP Active Social History Tobacco Use: Social History Observation Description Date Details (start date - stop date) Never Smoker NA - NA Tobacco Use/Smoking Question Answer Notes Are you a nonsmoker Problems Problem Type SNOMED Code ICD Code Onset Dates Problem Status W/U Status Risk Notes Problem Seizure disorder (668796676) Seizure disorder (G40.909) Active confirmed Problem Traumatic brain injury (572851324) TBI (traumatic brain injury) (S06.9X9A) Active confirmed Problem Seizure after head injury (975254903) Seizure after head injury (R56.1) Active confirmed Problem Agitation (06003354) Agitation (R45.1) Active confirmed Problem Motor restlessness (107848786) Motor restlessness (R45.1) Active confirmed Problem Change in behavior (865398879) Change in behavior (R46.89) Active confirmed Problem Altered thought processes (25108521) Cognitive changes (R41.89) Active confirmed Problem Hemiparesis (49917672) Hemiparesis (G81.90) Active confirmed Problem mood swings (finding) (42618592) Mood changes (F39) Active confirmed Problem Sleep disturbance (83695921) Sleep disturbance, unspecified (G47.9) Active confirmed Vital Signs Height 71 in 01/16/2025 Weight 195 lbs 01/16/2025 BMI 27.19 kg/m2 01/16/2025 Encounters Encounter Location Date Provider Diagnosis [facility] [address] [address] 08/02/2024 Barbara Thrasher TBI (traumatic brain injury) S06.9X9A ; Seizure after head injury R56.1 ; Agitation R45.1 and Motor restlessness R45.1 [facility] [address] [address] 10/06/2024 Barbara Thrasher TBI (traumatic brain injury) S06.9X9A ; Motor restlessness R45.1 ; Seizure after head injury R56.1 and Agitation R45.1 [facility] [address] [address] 01/16/2025 Barbara Thrasher TBI (traumatic brain injury) S06.9X9A [...] after head injury (ICD-10 - R56.1) 10/06/2024 Motor restlessness (ICD-10 - R45.1) Patient [...] not yet been completed. Will also order [facility] for annual surveillance labs. No medication changes made today. Will plan to follow up again in 3-4 months, sooner as needed. 01/16/2025 TBI (traumatic brain injury) (ICD-10 - S06.9X9A) 10/06/2024 TBI (traumatic brain injury) (ICD-10 - S06.9X9A) 01/16/2025 Motor restlessness (ICD-10 - R45.1) Patient is doing overall well. His mood remains well controlled. There have been no seizure or seizure-like episodes. Sleep is good. He does still have some mild motor restlessness in his legs intermittently, but is not bothered by this. No medication changes made today. Will plan to follow up again in 6 months, sooner as needed. 10/06/2024 Seizure after head injury (ICD-10 - R56.1) 01/16/2025 Seizure after head injury (ICD-10 - R56.1) 08/02/2024 Agitation (ICD-10 - R45.1) 08/02/2024 Motor restlessness (ICD-10 - R45.1) 01/16/2025 Agitation (ICD-10 - R45.1) 10/06/2024 Agitation (ICD-10 - R45.1) 08/02/2024 Other Visit conducted using telemedicine technology including audio and video and was requested by patient. Patient was at home in [place] during visit. 10/06/2024 Other Visit conducted using telemedicine technology including audio and video and was requested by patient. Patient was at home in [place] during visit. 01/16/2025 Other Visit conducted using telemedicine technology including audio and video and was requested by patient. Patient was at home in [place] during visit. Plan Of Treatment Pending Test Test Name Order Date IRON, TIBC AND FERRITIN PANEL 08/02/2024 COMPREHENSIVE METABOLIC PANEL 10/06/2024 COMPREHENSIVE METABOLIC PANEL 10/14/2023 SODIUM 06/03/2023 10-HYDROXYCARBAZEPINE 10/14/2023 LEVETIRACETAM, SERUM/PLASMA 10/14/2023 Next Appt Details Provider Name:Barbara Pepe jimenez, 07/19/2025 03:00:00 PM, [address] [place] [address], [place] [address], [place], [address], Insurance Providers Payer Name Payer Address Payer Phone Subscriber Number Group Number Insured Name Patient Relationship to Insured Coverage Start Date Coverage End Date MEDICARE [address] [place], [place] [id number] Case Matias Self - patient is the insured [facility] [address] [place] [address] [phone] [id number] Matias Willoughby Self - patient is the insured Medical (General) History Surgical History Surgery Date(Month/Year) BAclofen pump replaced 10/24/21 hand surgery
[2025-05-27 11:10] LABS: MANUAL DIFF FLAG NO
[2025-05-27 11:13] LABS: Hematocrit 43.3 % (42.0-52.0); Hemoglobin 15.2 g/dl (14.0-18.0); Imm Gran Abs Auto 0.03 X10*3/uL (0.00-0.03); Imm Gran Pct Auto 0.5 % (0.0-0.4); Lymphocytes Absolute Auto 2.0 X10*3/uL (1.2-4.9); Mean Corpuscular HGB Conc 35.1 g/dl (31.0-36.0); Mean Corpuscular Hemoglobin 30.4 pg (27.0-33.0); Mean Corpuscular Volume 86.6 fL (80.0-98.0); NRBC Abs Auto 0.000 X10*3/uL (0.0-0.012); NRBC Pct Auto 0.0 /100WBC (0.0-0.2); Platelet Count 196 X10*3/uL (160-400); Red Blood Count 5.00 X10*6/uL (4.60-5.80); White Blood Count 6.4 X10*3/uL (4.8-10.8)
[2025-05-27 11:56] LABS: Alanine Aminotransferase 62 U/L (0-40); Albumin Level 4.4 g/dL (3.5-5.0); Alkaline Phosphatase 80 U/L (39-117); Anion Gap 11 (12-20); Aspartate Amino Transferase 43 U/L (5-37); Blood Urea Nitrogen 11 mg/dL (9-16); Calcium 9.2 mg/dL (8.4-10.2); Carbon Dioxide 25 mmol/L (22-29); Chloride 107 mmol/L (96-108); Cholesterol 204 mg/dL (<200); Estimated Glomerular Filt Rate > 60; HDL Cholesterol 39 mg/dL (>40); Potassium 4.2 mmol/L (3.3-5.1); Sodium 139 mmol/L (135-145); Total Protein 7.3 g/dL (6.5-8.0); Triglycerides 184 mg/dL (<150)
[2025-05-27 12:36] LABS: Vitamin B12 325 pg/mL (200-900)
[2025-05-27 13:44] LABS: Folate 10.8 ng/mL (> or = 4.0)
== END 2025-05-27 09:27 | disposition home or self-care (01) ==
LOC: HO.HMGCLDS 09:26
PROVIDERS: PCP Internal Medicine; Visit Provider Internal Medicine
DX: Z00.00 Encounter for general adult medical examination without abnormal findings (principal); E78.00 Pure hypercholesterolemia, unspecified; E53.8 Deficiency of other specified B group vitamins; D64.9 Anemia, unspecified; E55.9 Vitamin D deficiency, unspecified
CPT/HCPCS: 36415; 80053; 80061; 82306; 82607; 82746; 84443; 85025

== ENCOUNTER 2025-05-30 15:53 | Outpatient (AMB) | payer MEDICARE, MEDICAID, SELFPAY ==
--- OUTSIDE RECORDS SUMMARY | 2024-03-21 09:30 | XMS_ITS ---
Author Organization [facility] [employer] [facility] Address [address] [place] [id number] Care Team Providers Care Extension Supervisor Name Role Phone Eliseo Dinh Primary Care Provider UnavailReyes Hernandez Unavailable [phone] Barbara Thrasher Unavailable [phone] REASON FOR VISIT je said cancel Encounters Encounter Location Date Provider Diagnosis [facility] [employer] [address] [address] 03/21/2024 Barbara Thrasher Plan Of Treatment Next Appt Details Provider Name:Barbara jimenez, 07/19/2025 03:00:00 PM, [address] [place] [address], [place] [address], [place], [address], Progress Notes * Matias WILLOUGHBY MDOB:[birth year] (40 yo M)Acc No.[id number]:03/21/2024 Patient: Matias SANCHEZ Provider: Hilario Thrasher RN, SENIOR CLINICAL DATA MANAGER-C, MORTGAGE LOAN OFFICER :1985 A ge:38 Y S ex:Male Date:03/21/2024 Address: [place] [facility] Pcp:Eliseo Dinh Subjective: * Chief Complaints: * 1 . Je said cancel. * Medical History: Objective: * Vitals: Assessment: Plan: * Treatment: * * Electronic signature of TOSHA JonesC, KOKO on 05/30/2025 at 06:29 PM EDT Sign off status: Pending * Provider: Hilario Thrasher RN, KAHILL, KOKO Date: 0 03/21/2024 Generated for Printing/Faxing/eTransmitting on: 0 05/30/2025 06:29 PM EDT
[2025-05-30 15:58] VITALS: BP 124/76; PULSE 82; O2SAT 97
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
--- OUTSIDE RECORDS SUMMARY | 2025-05-30 18:29 | XMS_ITS | Clinical Summary ---
Author Organization [facility] Address [address] [facility] [address] [place] [phone] Phone Care Team Providers Care Staff Development Coordinator Name Role Phone Unavailable Primary Care Provider [...] It is not the complete legal health record.[facility]
--- OUTSIDE RECORDS SUMMARY | 2025-05-30 18:29 | XMS_ITS | Patient Health Record ---
Author Organization [facility] Address [address] [address] Care Team Providers Care Tax Lawyer Name Role Phone Eliseo Dinh Primary Care Provider UnavailReyes Hernandez Unavailable [phone] Barbara Thrasher Unavailable [phone] Allergies Allergen (clinical drug ingredient) Drug/Non Drug [...] W/U Status Risk Notes Problem Seizure disorder (677911118) Seizure disorder (G40.909) Active confirmed Problem Traumatic brain injury (057036621) TBI (traumatic brain injury) (S06.9X9A) Active confirmed Problem Seizure after head injury (324929895) Seizure after head injury (R56.1) Active confirmed Problem Agitation (49796815) Agitation (R45.1) Active confirmed Problem Motor restlessness (518133687) Motor restlessness (R45.1) Active confirmed Problem Change in behavior (863978220) Change in behavior (R46.89) Active confirmed Problem Altered thought processes (20049458) Cognitive changes (R41.89) Active confirmed Problem Hemiparesis (81849684) Hemiparesis (G81.90) Active confirmed Problem mood swings (finding) (09155604) Mood changes (F39) Active confirmed Problem Sleep disturbance (38456603) Sleep disturbance, unspecified (G47.9) Active confirmed Vital Signs Height 71 in 01/16/2025 Weight 195 lbs 01/16/2025 BMI 27.19 kg/m2 01/16/2025 Encounters Encounter Location Date Provider Diagnosis [facility] [address] [address] 08/02/2024 Barbara Thrasher TBI (traumatic brain injury) S06.9X9A ; Seizure after head injury R56.1 ; Agitation R45.1 and Motor restlessness R45.1 [facility] [employer] [address] [address] 10/06/2024 Barbara Thrasher TBI (traumatic brain injury) S06.9X9A ; Motor restlessness R45.1 ; Seizure after head injury R56.1 and Agitation R45.1 [facility] [employer] [facility] [address] [address] 01/16/2025 Barbara Thrasher TBI (traumatic brain injury) [...] not yet been completed. Will also order [facility] for annual surveillance labs. No medication changes [...] by patient. Patient was at home in [place] during visit. 10/06/2024 Other Visit conducted using telemedicine technology including audio and video and was requested by patient. Patient was at home in [place] during visit. 01/16/2025 Other Visit conducted using telemedicine technology including audio and video and was requested by patient. Patient was at home in [place] during visit. Plan Of Treatment Pending Test Test Name Order Date IRON, TIBC AND FERRITIN PANEL 08/02/2024 COMPREHENSIVE METABOLIC PANEL 10/06/2024 COMPREHENSIVE METABOLIC PANEL 10/14/2023 SODIUM 06/03/2023 10-HYDROXYCARBAZEPINE 10/14/2023 LEVETIRACETAM, SERUM/PLASMA 10/14/2023 Next Appt Details Provider Name:Barbara Pepe jimenez, 07/19/2025 03:00:00 PM, [address] [place] [address], [place] [address], [place], [address], Insurance Providers Payer Name Payer Address Payer Phone Subscriber Number Group Number Insured Name Patient Relationship to Insured Coverage Start Date Coverage End Date MEDICARE [address] [place] [id number] Case Matias Self - patient is the insured [facility] [address] [place] [address] [id number] Matias Willoughby Self - patient is the insured Medical (General) History Surgical History Surgery Date(Month/Year) BAclofen pump replaced 10/24/21 hand surgery
== END 2025-05-30 16:29 | disposition home or self-care (01) ==
LOC: HO.HMCH 15:54
PROVIDERS: PCP Internal Medicine; Visit Provider Internal Medicine
DX: Z00.00 Encounter for general adult medical examination without abnormal findings (principal); F33.1 Major depressive disorder, recurrent, moderate; E78.2 Mixed hyperlipidemia; S06.9X9S Unspecified intracranial injury with loss of consciousness of unspecified duration, sequela; J30.9 Allergic rhinitis, unspecified; G47.00 Insomnia, unspecified; F41.9 Anxiety disorder, unspecified

== ENCOUNTER → 2025-05-30 15:53 | Outpatient (BNVA) | payer MEDICARE, MEDICAID, SELFPAY | PROVIDERS: PCP Internal Medicine; Visit Provider Internal Medicine | DX: Z00.00 Encounter for general adult medical examination without abnormal findings (principal); E78.2 Mixed hyperlipidemia; J30.9 Allergic rhinitis, unspecified; G47.00 Insomnia, unspecified; F41.9 Anxiety disorder, unspecified; F33.1 Major depressive disorder, recurrent, moderate; S06.9X9S Unspecified intracranial injury with loss of consciousness of unspecified duration, sequela; X58.XXXS Exposure to other specified factors, sequela | CPT/HCPCS: 96127; 99396 ==